=== PATIENT | male | born 1995 | race Hispanic/Latino ===

== ENCOUNTER 2021-02-17 17:12 | Emergency (ER) | payer SELFPAY ==
[2021-02-17] MEDS ORDERED: LIDOCAINE 1% 20 ML MDV ONE (19:06)
--- NOTE | 2021-02-17 19:14 | ER ---
Nurse's Notes [facility] Name: Nuno Glover Age: 25 yrs Sex: Male : 1995 Arrival Date: 02/17/2021 Time: 17:13 Bed 8 Private MD: Diagnosis: Laceration without foreign body of left hand Presentation: 02/17 17:53 Chief complaint: Patient states: "I was cutting a zip tie with a knife and cut my aa5 hand". Laceration noted to left palm, measuring approximately 1 in long, mild bleeding noted, pressure dressing applied. Coronavirus screen: At this time, the client does not indicate any symptoms associated with coronavirus-19. Ebola Screen: Patient negative for fever greater than or equal to 101.5 degrees Fahrenheit, and additional compatible Ebola Virus Disease symptoms. Complicating Factors: There are no complicating factors for this patient. Initial Sepsis Screen: Does the patient meet any 2 criteria? No. Patient's initial sepsis screen is negative. Does the patient have a suspected source of infection? No. Patient's initial sepsis screen is negative. Risk Assessment: Do you want to hurt yourself or someone else? Patient reports no desire to harm self or others. Onset of symptoms was February 17, 2021. 17:53 Method Of Arrival: Ambulatory aa5 17:53 Acuity: SHENG 4 aa5 Historical: - Allergies: 17:56 No Known Allergies; aa5 - PMHx: 17:56 None; aa5 - Immunization history:: Last tetanus immunization: < 5 years ago. - Social history:: Smoking status: Patient denies any tobacco usage or history of. Screenin:27 Abuse screen: Denies threats or abuse. Nutritional screening: No deficits noted. jb4 Tuberculosis screening: No symptoms or risk factors identified. Fall Risk None identified. Assessment: 19:00 General: Appears in no apparent distress. comfortable, Behavior is calm, cooperative, jb4 appropriate for age. Pain: Denies pain. Neuro: Level of Consciousness is awake, alert, obeys commands, Oriented to person, place, time, situation. Cardiovascular: Patient's skin is warm and dry. Respiratory: Airway is patent Respiratory effort is even, unlabored, Respiratory pattern is regular, symmetrical. GI: No signs and/or symptoms were reported involving the gastrointestinal system. : No signs and/or symptoms were reported regarding the genitourinary system. EENT: No signs and/or symptoms were reported regarding the EENT system. Derm: Skin is intact, Skin is pink, warm \\T\\ dry. Musculoskeletal: Circulation, motion, and sensation intact. Range of motion: intact in all extremities. Injury Description: Laceration sustained to left wrist is clean, 0.5 to 2.5 cm long. 19:27 Reassessment: Patient appears in no apparent distress at this time. Patient and/or jb4 family updated on plan of care and expected duration. Pain level reassessed. Patient is alert, oriented x 3, equal unlabored respirations, skin warm/dry/pink. Vital Signs: 17:53 BP 112 / 67; Pulse 58; Resp 18 S; Temp 98.4(TE); Pulse Ox 100% on R/A; Weight 95.25 kg aa5 (R); Height 5 ft. 10 in. (177.80 cm) (R); 17:53 Body Mass Index 30.13 (95.25 kg, 177.80 cm) aa5 ED Course: 17:13 Patient arrived in ED. ds1 17:53 Arm band placed on. aa5 17:56 Triage completed. aa5 18:21 Bassam Rose NP is PHCP. pm1 18:21 Lemuel Ramires MD is Attending Physician. pm1 18:56 Summer Ralph, MARY LOU is Primary Nurse. kg 19:27 Patient has correct armband on for positive identification. Bed in low position. Call jb4 light in reach. Side rails up X 1. Pulse ox on. NIBP on. 19:27 Assist provider with laceration repair on lateral aspect of left wrist that was 2.5 cm. jb4 or less using sutures. Set up tray. Performed by Bassam Rose NP. Patient did not have IV access during this emergency room visit. Administered Medications: 19:00 Drug: Lidocaine (1 %) 5 ml {Note: AT B/S.} Volume: 5 ml; Route: Infiltration; bp 19:24 Drug: Tetanus-Diphtheria Toxoid Adult 0.5 ml {Trousseau Consultant: [employer]. Exp: jb4 03/05/2022. Lot #: [id number]. } Route: IM; Site: left deltoid; 19:25 Follow up: Response: Medication administered at discharge. jb4 Outcome: 19:13 Discharge ordered by . pm1 19:27 Discharged to home ambulatory. jb4 19:27 Condition: stable 19:27 Discharge instructions given to patient, Instructed on discharge instructions, follow up and referral plans. medication usage, Demonstrated understanding of instructions, follow-up care, medications, Prescriptions given X 1. 19:29 Patient left the ED. jb4 Signatures: Alexandria López ds1 Leatha Araujo, RN RN aa5 Bassam Rose NP SHEET TURNER pm1 Adarsh Perales RN RN jb4 Hieu Vasquez, MARY LOU RN bp Summer Ralph RN RN kg Corrections: (The following items were deleted from the chart) 17:58 17:53 95.25 kg Reported; Height 5 ft. 10 in. Reported; BMI: 30.1; aa5 aa5
--- NOTE | 2021-02-17 19:14 | EDPHYS ---
Physician Documentation [facility] Name: Nuno Glover Age: 25 yrs Sex: Male : 1995 Arrival Date: 02/17/2021 Time: 17:13 Bed 8 Private MD: ED Physician Lemuel Ramires HPI: 02/17 18:27 This 25 yrs old Male presents to ER via Ambulatory with complaints of pm1 Laceration To Arm. 18:27 The patient has a laceration occurred at home, and there are no complicating factors. pm1 The injury was accidental. The laceration(s) is(are) located on the left thenar process. Onset: The symptoms/episode began/occurred just prior to arrival. Associated signs and symptoms: Pertinent negatives: dizziness, heavy bleeding, numbness distal to injury, suspected foreign body. The patient has not experienced similar symptoms in the past. The patient has not recently seen a physician. Patient was cutting zip tie for cables with his right hand and then he accidental cut his left hand with the knife. Historical: - Allergies: 17:56 No Known Allergies; aa5 - PMHx: 17:56 None; aa5 - Immunization history:: Last tetanus immunization: < 5 years ago. - Social history:: Smoking status: Patient denies any tobacco usage or history of. ROS: 18:27 Constitutional: Negative for fever, chills, and weight loss, Cardiovascular: Negative pm1 for chest pain, palpitations, and edema, Respiratory: Negative for shortness of breath, cough, wheezing, and pleuritic chest pain, Abdomen/GI: Negative for abdominal pain, nausea, vomiting, diarrhea, and constipation. 18:27 Neuro: Negative for headache, weakness, numbness, tingling, and seizure. 18:27 MS/extremity: Positive for puncture, of the left hand, Negative for decreased range of motion, paresthesias, tingling. 18:27 Skin: Positive for laceration(s), of the left hand. 18:27 All other systems are negative. Exam: 19:13 Constitutional: This is a well developed, well nourished patient who is awake, alert, pm1 and in no acute distress. Head/Face: Normocephalic, atraumatic. 19:13 Eyes: Exam is negative for acute changes, Extraocular movements: intact throughout, Conjunctiva: no acute changes, Sclera: icterus, is not appreciated. 19:13 ENT: Mouth: Lips: normal, Oral mucosa: normal, pink and intact, moist. 19:13 Cardiovascular: Rate: normal, Rhythm: regular, Pulses: no pulse deficits are appreciated. 19:13 Respiratory: Exam negative for acute changes, respiratory distress, shortness of breath. 19:13 Skin: Appearance: normal except for affected area, injury, laceration(s), the wound is approximately 2.5 cm(s), with a depth of 0.5 cm(s), of the left thenar process. 19:13 Neuro: Exam negative for acute changes, Orientation: is normal, Mentation: is normal, Motor: is normal, moves all fours. Vital Signs: 17:53 BP 112 / 67; Pulse 58; Resp 18 S; Temp 98.4(TE); Pulse Ox 100% on R/A; Weight 95.25 kg aa5 (R); Height 5 ft. 10 in. (177.80 cm) (R); 17:53 Body Mass Index 30.13 (95.25 kg, 177.80 cm) aa5 Laceration: 19:13 Wound Repair of 2.5cm ( 1.0in ) subcutaneous laceration to left thenar process. Linear pm1 shaped.. Distal neuro/vascular/tendon intact. Anesthesia: Local anesthetic administered with 3 mls of 1% lidocaine. Wound prep: Extensive cleansing with hibiclenz by me, Wound irrigation with saline by me, Wound explored extensively, Copious irrigation. Skin closed with 6 4-0 Prolene using simple sutures and sterile technique. Dressed with 4x4's. Patient tolerated well. MDM: 18:22 Patient medically screened. [facility] 19:13 Data reviewed: vital signs. Data interpreted: Pulse oximetry: on room air is 100 %. pm1 Interpretation: normal. 19:13 Counseling: I had a detailed discussion with the patient and/or guardian regarding: the pm1 historical points, exam findings, and any diagnostic results supporting the discharge/admit diagnosis, radiology results, the need for outpatient follow up, a family practitioner, a hand specialist, to return to the emergency department if symptoms worsen or persist or if there are any questions or concerns that arise at home. 02/17 18:27 Order name: Prolene, Sutures; Complete Time: 19:00 pm1 02/17 18:27 Order name: Dressing - Wound; Complete Time: 19:00 pm1 02/17 18:27 Order name: Gloves, Sterile; Complete Time: 19:00 pm1 02/17 18:27 Order name: Setup Suture Tray; Complete Time: 19:00 pm1 Administered Medications: 19:00 Drug: Lidocaine (1 %) 5 ml {Note: AT B/S.} Volume: 5 ml; Route: Infiltration; bp 19:24 Drug: Tetanus-Diphtheria Toxoid Adult 0.5 ml {Briquetting Machine Operator: [employer]. Exp: jb4 03/05/2022. Lot #: [id number]. } Route: IM; Site: left deltoid; 19:25 Follow up: Response: Medication administered at discharge. jb4 Disposition: 02/17/21 19:13 Discharged to Home. Impression: Laceration without foreign body of left hand. - Condition is Stable. - Discharge Instructions: Laceration Care, Adult. - Prescriptions for Keflex 500 mg Oral Capsule - take 1 capsule by ORAL route every 12 hours for 10 days; 20 capsule. - Medication Reconciliation Form, Thank You Letter, Antibiotic Education, Prescription Opioid Use form. - Follow up: Emergency Department; When: As needed; Reason: Worsening of condition. Follow up: Private Physician; When: 2 - 3 days; Reason: Recheck today's complaints, Continuance of care, Re-evaluation by your physician. - Problem is new. - Symptoms have improved. - Notes: Suture removal in 10-14 days Addendum: 02/19/2021 07:49 Co-signature as Attending Physician, Lemuel Ramires MD I agree with the assessment and c hubbard plan of care. Signatures: Lemuel Ramires MD MD cha Calderon, Audri, RN RN aa5 Bassam Rose, CHU [employer]YCLING SORTER pm1 Adarsh Perales, RN RN jb4 Hieu Vasquez RN RN bp Corrections: (The following items were deleted from the chart) 02/17 19:29 19:13 02/17/2021 19:13 Discharged to Home. Impression: Laceration without foreign body jb4 of left hand. Condition is Stable. Forms are Medication Reconciliation Form, Thank You Letter, Antibiotic Education, Prescription Opioid Use. Follow up: Emergency Department; When: As needed; Reason: Worsening of condition. Follow up: Private Physician; When: 2 - 3 days; Reason: Recheck today's complaints, Continuance of care, Re-evaluation by your physician. Problem is new. Symptoms have improved. pm1
[2021-02-17 19:34] VITALS: BP 112/67; TEMP 98.4; O2SAT 100
[2021-02-17] MEDS ORDERED: TETANUS & DIPHTHERIA TOX,ADULT 0.5 ML VIAL ONE (19:40)
== END 2021-02-17 19:29 | disposition home or self-care (01) ==
LOC: ER 17:12
PROC: 0JQK0ZZ Repair Left Hand Subcutaneous Tissue and Fascia, Open Approach (ICD-10-PCS; principal; 2021-02-17)
DX: S61.412A Laceration without foreign body of left hand, initial encounter (principal); W26.0XXA Contact with knife, initial encounter; Y93.89 Activity, other specified; Y92.009 Unspecified place in unspecified non-institutional (private) residence as the place of occurrence of the external cause; Z23 Encounter for immunization
CPT/HCPCS: 90471; 90714; 99284